=== PATIENT | female | born 1975 | race Caucasian/White ===

== ENCOUNTER → 2018-03-26 | Day surgery (SDC) | payer BC ==
--- NOTE | 2018-03-26 10:22 | MMO ---
STEREOTACTIC BREAST BIOPSY: Date: 03/26/18 HISTORY: Left breast calcifications. COMPARISON: Outside facility mammogram dated 03/13/18 and 02/22/18. TECHNIQUE/FINDINGS: The patient was brought to the stereotactic biopsy suite. All questions were answered. Informed conse nt was obtained, Timeout was performed. The left breast was prepped and draped in the normal sterile fashion. Board Handler images of the left breast visualized the calcifications and a CC approach was used. Using a 10 gauge needle, a total of 9 core s were obtained. Calcifications were seen in the samples. The patient tolerated the procedure well an d the clip was placed which dropped in the dependent portion of the cavity. IMPRESSION: Technically successful stereotactic breast calcification biopsy. POS: [facility]
--- NOTE | 2018-03-26 10:50 | MMO ---
UNILATERAL RIGHT BREAST MAMMOGRAM: Date: 03/26/18 HISTORY: Clip placement. COMPARISON: Outside facility mammograms. FINDINGS: There is satisfactory position of the right breast mass clip in upper outer quadrant. IMPRESSION: Satisfactory clip placement. POS: [facility]
--- NOTE | 2018-03-26 10:51 | MMO ---
POST CLIP MAMMOGRAM: Date: 03/26/18 HISTORY: Stereotactic biopsy. COMPARISON: Multiple prior mammograms. FINDINGS: Post clip mammogram demonstrates satisfactory position of the clip. IMPRESSION: Satisfactory position of the left breast clip. POS: [facility]
--- NOTE | 2018-03-26 10:53 | ULT ---
ULTRASOUND GUIDED RIGHT BREAST MASS BIOPSY: Date: 03/26/18 HISTORY: Breast mass. COMPARISON: Outside facility mammogram. FINDINGS: The patient was brought to the ultrasound suite. All questions were answered. The right breast was prepped and draped in the normal sterile fashion. 5 mL of lidocaine was instille d into the superficial and deep soft tissues. After adequate anesthesia occurred, a total of four 14 gauge samples were obtained. The patient victoriano ated the procedure well, without complication. Clip was placed. IMPRESSION: Technically successful ultrasound guided breast mass biopsy. POS: [facility]
== END ==
LOC: MAMMO 05:50
PROVIDERS: ATTEND Family Medicine
PROC: 0HBV3ZX Excision of Bilateral Breast, Percutaneous Approach, Diagnostic (ICD-10-PCS; principal; 2018-03-26)
DX: D24.1 Benign neoplasm of right breast (principal); D24.2 Benign neoplasm of left breast; N60.22 Fibroadenosis of left breast; R92.0 Mammographic microcalcification found on diagnostic imaging of breast
CPT/HCPCS: 19081; 19083; 76098; 88305; 88341; 88342